=== PATIENT | female | born 1970 | race Caucasian/White ===

== ENCOUNTER → 2020-08-10 | Day surgery (SDC) | payer OTHER ==
[~2020-08-10] MED LIST: ALLOPURINOL300 MG PO; DITROPAN 5 MG TA5 MG PO; DOCUSATE SODIU250 MG PO; HYDROCODONE-AC1 EAC1 PO; HYDROCODONE-AC1 EACH PO; IBRANCE125 M1 PO; IBUPROFEN600 MG PO; K-TAB ER10 MEQ PO; LASIX20 MG PO; LEVOTHYROXINE25 MC1 PO; LISINOPRIL20 MG PO; LORATADINE10 MG PO; MIRAPEX1 MG PO; MOBIC15 MG PO; OMEPRAZOLE20 M1 PO; PROCHLORPERAZIN10 MG PO; VITAMIN D21250 MCG PO
[2020-08-10 06:41] LABS: HEMOGLOBIN 13.2 gm/dl (12.3-15.3); RED BLOOD COUNT 3.77 M/UL (4.00-5.10)
[2020-08-10 06:59] LABS: BUN/CREATININE RATIO 33 (0-10)
== END | disposition home or self-care (01) ==
LOC: OR 06:01
PROVIDERS: Obstetrics & Gynecology
DX: N81.9 Female genital prolapse, unspecified (principal); K66.0 Peritoneal adhesions (postprocedural) (postinfection); I10 Essential (primary) hypertension; F17.210 Nicotine dependence, cigarettes, uncomplicated; G47.30 Sleep apnea, unspecified; K21.9 Gastro-esophageal reflux disease without esophagitis; E03.9 Hypothyroidism, unspecified; E66.01 Morbid (severe) obesity due to excess calories; R32 Unspecified urinary incontinence; Z20.822 Contact with and (suspected) exposure to COVID-19
CPT/HCPCS: 36415; 71045; 80053; 85025; 93005; C1763; C1769; J0690; J1100; J1885; J2001; J2250; J2405; J2704; J2710; J3010; J7030; J7050; J7120; U0002